=== PATIENT | male | born 1970 | race African-American/Black ===

== ENCOUNTER 2025-09-19 09:39 | Outpatient (AMB) | payer OTHER, SELFPAY ==
--- NOTE | 2025-09-19 09:42 | MHC.OFFVIS ---
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 He was diagnosed with large right hemispheric subdural hemorrhage and had craniotomy for hematoma removal. A year after in [address] in [facility] revealed no significant abnormality of brain other than signs of previous craniotomy. He was complaining of being unsteady. Otherwise there was no evidence of seizure-like episode. He was not having any headaches. No recent falls. [facility] Medical History (Updated 09/19/25 @ 10:06 by Paul Call MD) Normal esophagogastroduodenoscopy (EGD) DVT (deep venous thrombosis) Hyperlipemia Type 2 diabetes mellitus with morbid obesity DM (diabetes mellitus), type 2 with peripheral vascular complications RADHA (obstructive sleep apnea) Obesity, morbid PLMD (periodic limb movement disorder) Accessory toe Essential hypertension Nuclear sclerosis of both eyes Venous insufficiency Venous stasis Peripheral edema Recurrent acute deep vein thrombosis (DVT) of right lower extremity Acute deep vein thrombosis (DVT) of femoral vein of right lower extremity Type 2 diabetes mellitus with cataract Lymphedema Subdural hematoma Abdominal hematoma Moderate episode of recurrent major depressive disorder Paroxysmal atrial fibrillation Surgical History (Updated 09/15/25 @ 08:39 by BETHANY Carrion) H/O craniotomy History of radial keratotomy H/O colonoscopy Family History (Updated 09/15/25 @ 08:43 by BETHANY Carrion) Paternal Grandmother Diabetes mellitus Paternal Grandfather Diabetes mellitus Father HTN (hypertension) Paternal Aunt Blindness Diabetes mellitus Mother Glaucoma Social History (Updated 09/15/25 @ 08:40 by BETHANY Carrion) Alcohol intake: never Patient Tobacco Use Status: Former Tobacco user e-Cigarette/Vaping Use: Former Use Review of Systems Narrative Constitutional:?No fever, chills, fatigue, weight loss, or night sweats. HEENT:? Headaches and sinus problems. Cardiovascular:?No chest pain, palpitations, orthopnea, PND, or leg swelling. Respiratory:?No cough, shortness of breath, wheezing, or hemoptysis. Gastrointestinal:?No nausea, vomiting, abdominal pain, diarrhea, or constipation. Genitourinary:? Incontinent. Musculoskeletal:? Joint pains and difficulty walking. Neurological:? No seizures or falls. Psychiatric:? Anxious. Endocrine:?No heat/cold intolerance, polydipsia, polyuria, or hair/skin changes. Hematologic/Lymphatic:?No easy bruising, bleeding, or lymphadenopathy. Integumentary (Skin):?No rash, lesions, itching, or color changes. Allergic/Immunologic:?No seasonal allergies, hives, or recurrent infections. Assessment & Plan Assessment & Plan (1) Subdural hematoma: Comment: CT brain WO at [facility] in 2021: WNL, s/p craniotomy CT brain WO at [facility] in 2020: Mod to large R SDH, s/p craniotomy Code(s): S06.5XAA - Traumatic subdural hemorrhage with loss of consciousness status unknown, initial encounter Category: Medical (2) Diabetic neuropathy: Code(s): E11.40 - Type 2 diabetes mellitus with diabetic neuropathy, unspecified Category: Medical Qualifiers: Diabetes mellitus type: type 2 Diabetes mellitus complication detail: diabetic polyneuropathy Qualified Code(s): E11.42 - Type 2 diabetes mellitus with diabetic polyneuropathy Plan Impression: 1. History of large right sided subdural hemorrhage that happened when he was taking Eliquis for DVT, lost his balance and fell. He was treated with craniotomy for hematoma evacuation. His head CT a year later did not reveal any significant abnormality. 2. Multifactorial gait disorder from obesity and diabetic neuropathy. Recommendations: 1. Reassurance and education about his conditions 2. EMG nerve conduction study of 1 like to classify in great neuropathy 3. Continue to use a cane and use caution to avoid falls. Common sense measures to avoid accidents. 4. Better control of diabetes and weight reduction 5. Staying physically in mentally active Orders: Orders NE nerve conduction velocity Today E11.42 - Type 2 diabetes mellitus with diabetic polyneuropathy NE electromyogram (EMG) Today E11.42 - Type 2 diabetes mellitus with diabetic polyneuropathy Coding Level of Care Code New Pt Level 4 (67539) Diagnoses Subdural hematoma S06.5XAA Diabetic polyneuropathy associated with type 2 diabetes mellitus E11.42 Diabetes mellitus type: type 2 Diabetes mellitus complication detail: diabetic polyneuropathy
== END 2025-09-19 10:08 | disposition home or self-care (01) ==
LOC: HO.HSM 09:39
PROVIDERS: PCP Internal Medicine; Visit Provider Psychiatry & Neurology Neurology
DX: S06.5XAA Traumatic subdural hemorrhage with loss of consciousness status unknown, initial encounter (principal); E11.42 Type 2 diabetes mellitus with diabetic polyneuropathy
CPT/HCPCS: 99204

== ENCOUNTER → 2025-09-19 09:39 | Outpatient (BNVA) | payer OTHER, SELFPAY | PROVIDERS: PCP Internal Medicine; Visit Provider Psychiatry & Neurology Neurology | DX: S06.5XAA Traumatic subdural hemorrhage with loss of consciousness status unknown, initial encounter (principal); W01.0XXA Fall on same level from slipping, tripping and stumbling without subsequent striking against object, initial encounter; Y93.89 Activity, other specified; Y92.009 Unspecified place in unspecified non-institutional (private) residence as the place of occurrence of the external cause; Y99.9 Unspecified external cause status; E11.42 Type 2 diabetes mellitus with diabetic polyneuropathy | CPT/HCPCS: 99202 ==

== ENCOUNTER 2025-10-24 13:45 | Outpatient (REF) | payer OTHER, SELFPAY ==
--- NOTE | 2025-10-24 14:09 | EMG_ITS ---
Chief complaint: E11.42 Type 2 diabetes mellitus with diabetic polyneuropathy Referred by:?Dr Call Procedure done: Right lower extremity NCS/EMG Right tibial and peroneal motor studies were performed with F responses and tibial H-reflex. Right superficial peroneal and sural sensory studies were performed. Needle examination was performed. Findings: Right tibial amplitudes were markedly diminished while peroneal amplitude was mildly diminished. Tibial conduction velocity was in 30s while peroneal were with a normal range. Were absent. Tibial F response was slightly delayed and H-reflex was absent. 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
--- NOTE | 2025-10-24 15:12 | EMG_ITS ---
Chief complaint: Diabetic polyneuropathy Referred by:?Dr Call Procedure done: Right lower extremity NCS/EMG [place]in 04610 1 extremity MTDD
--- OUTSIDE RECORDS SUMMARY | 2025-10-24 18:36 | XMS_ITS | Clinical Summary ---
Author Organization [facility] Address [address] [place] [address] Care Team Providers Care Health And Safety Advisor Name Role Phone Kaycee Freed MD Primary Care Provider Unavailable Allergies No known active allergies Medications Medication Sig Dispensed Refills Start Date End Date Status atorvastatin (LIPITOR) tablet 40 mg Take 40 mg by mouth daily. 0 Active insulin glargine (LANTUS) injection 100 units/mL Inject under the skin every night at bedtime. 0 Active ammonium lactate (LAC-HYDRIN) 12 % lotion Apply topically as needed for dry skin. 0 Active metoprolol tartrate (LOPRESSOR) 50 MG tablet Take by mouth 2 (two) times a day. 0 Active docusate sodium (COLACE) 100 MG capsule Take 100 mg by mouth 2 (two) times a day. 200 mg 0 Active famotidine (PEPCID) 20 MG tablet Take 20 mg by mouth 2 (two) times a day. 0 Active insulin lispro (HumaLOG) injection 100 units/mL Inject under the skin 3 (three) times a day before meals. 0 Active levETIRAcetam (KEPPRA) 500 MG tablet Take 500 mg by mouth 2 (two) times a day. 0 Active modafinil (PROVIGIL) 100 MG tablet Take 100 mg by mouth daily. 0 Active nicotine (NICODERM CQ) 14 MG/24HR Place 1 patch onto the skin daily. 0 Active polyethylene glycol (MIRALAX) 17 g packet Take 17 g by mouth daily. 0 Active senna (SENOKOT) 8.6 MG tablet Take 1 tablet by mouth daily. 0 Active vitamin B complex w/ vitamin C (TOTAL B/C) TABS tablet Take 1 tablet by mouth daily. 0 Active lisinopril (PRINIVIL,ZESTRIL) tablet 2.5 mg Take 2.5 mg by mouth daily. 0 Active Active Problems Problem Noted Date Diagnosed Date Acute pulmonary embolism without acute cor pulmo nale 12/14/2020 Acute deep vein thrombosis ( DVT) of femoral vein of right lower extremity 12/14/2020 Social History Tobacco Use Types Packs/Day Years Used Date Smoking Tobacco: Every Day Smokeless Tobacco: Never Alcohol Use Standard Drinks/Week Comments No 0 (1 standard drink = 0.6 oz pur e alcohol) Sex and Gender Information Value Date Recorded Sex Assigned at Not on file Gender Identity Not on file Sexual Orientation Not on file Job Start Date Occupation Industry Not on file Not on file Not on file Last Filed Vital Signs Vital Sign Reading Time Taken Comments Blood Pressure 135/70 03/11/2022 11:55 AM EDT Pulse 63 03/11/2022 11:55 AM EDT Temperature 36.6 C (97.8 F) 03/11/2022 11:55 AM EDT Respiratory Rate - - Oxygen Saturation 96% 03/11/2022 11: 55 AM EDT Inhaled Oxygen Concentration - - Weight 167.7 kg (369 lb 12.8 oz) 2021 11:55 AM EDT Height 182.9 cm (6') 03/11/2022 11:55 AM EDT Body Mass Index 50.15 03/11/2022 11:55 AM EDT Plan of Treatment Health Maintenance Due Date Last Done Comments Hepatitis B Vaccines (1 of 3 - 3-dose series) 1968 Hepatitis C Screening 1968 Depression Screening 1980 Preventative Health Evaluation 02/23/1986 Tobacco Cessation Counseling 02/23/1986 Colon Cancer Screening (Colonoscopy) 02/23/2013 Pneumococcal Vaccine (2 of 2 - PCV) 12/29/2014 12/29/2013 Shingrix-Zoster Vaccine (1 of 2) 02/23/2018 DTap / Tdap / Td (2 - Td or Tdap) 07/03/2022 07/03/2012 COVID-19 Vaccine ( - season) 2025 01/17/2022, 01/26/2021, 01/09/2021 Influenza Vaccine (#1) 2025 , 11/02/2020, 10/18/2019, Additional history exists RSV Ped < 20 months Aged Out No longe r eligible based on patient's age to complete this topic Care Teams Health And Safety Advisor Relationship Specialty Start Date End Date Kaycee Freed MD PCP - General Family Medicine 03/11/22
--- OUTSIDE RECORDS SUMMARY | 2025-10-24 18:36 | XMS_ITS ---
Author Name [facility] Organization Unknown Care Team Organization Name Specialty Phone Email Start Date End Da te [facility] Kaycee Freed Primary Care 02/05/20232023 [facility] Jennyfer Felipe Primary Care 10/08/2022 07/19/2024
--- OUTSIDE RECORDS SUMMARY | 2025-10-24 18:36 | XMS_ITS | Data Portability ---
Author Organization [facility] [employer] [facility] Main Office Address [address], [address] [place] [address] Care Team Providers Care Aba Therapist Name Role Phone [facility] OTHER LUISITO EUBANKS Primary Care Provider [phone] Assessment No assessment recorded. Plan of Treatment Reminders Order Date Submit Date Provider Last Modified By Organization Details Last Modified Time Details Appointments None record ed. Lab None record ed. Referral None record ed. Procedures None record ed. Surgeries None record ed. Imaging None record ed. Medication Orders None record ed. Patient TargetsNo targets recorded. Patient Instructions Encounter Date Encounter Id Patient Instructions Last Modified By Organization Details Last Modified Time 09/12/2021 [id number] Dispo -- home wi th IV abx complete, approximately 14 days [email or web address] Not available 09/13/2021 21:18:35 09/27/2021 [id number] F/U Appointments : PCP: Dr. Luisito Eubanks 09/28/2021 @ 1100 Total time spent on discharge: 45 minutes Scripts not needed since pt seeing PCP tomorrow [email or web address] Not available 09/27/2021 12:21:23 Reason for Referral None Reported. Problems Name Problem SNOMED Code Status Onset Date Resolution Date Notes Provider Name and Address Organization Details Recorded Time Cellulitis of lower limb 507518530 Active 2020 BECKA BOO PA-C [address], [place], [address], [facility] [employer] 21:00:20 Deep venous thrombosis of lower extremity 642590279 Active 2020 BECKA BOO PA-C [address], [address], [place], [address], [facility] [employer] 20:54:24 Type 2 diabetes mellitus with peripheral angiopathy 803426928 Active 2020 BECKASA RAJEEV PA-C [address], [address], [place], [address], [facility] 20:54:47 Essential hypertension 96438502 Active 2020 BECKA SHANTELLE BOO [address], [address], [place], [address], [facility] 20:54:54 Dyslipidemia 300254492 Active 2020 BECKA SHANTELLE BOO [address], [address], [place], [address], [facility] 20:55:01 Lymphedema 128777714 Active 2020 BECKASA RAJEEV PA-C [address], [address], [place], [address], [facility] 20:55:16 Pulmonary embolism 88475440 Active 2020 BECKA BOO PA-C [address], [place], [address], [facility] 20:55:41 Nicotine dependence 37674442 Active 2020 Marcie Morrison MD [address], [place], [address], [facility] 01:13:35 Allergic rhinitis 36331932 Active 2020 Marcie Morrison MD [address], [place], [address], [facility] 01:16:42 Problem Notes None recorded. Medical Equipment None Reported. Allergies No known drug allergies Medications Not known to be on any medication Vitals Date Recorded Body temperature Heart rate Respiratory rate Oxygen saturation Systolic And Diastolic Provider Name and Address Organization Details Last Updated DateTime 98 [degF] 86 /min 21 /min 95 % 141/82 mm[Hg] BECKA SHANTELLE BOO [address], [address], [place], [address], [facility] 13:34:09 Date Recorded Body height Body mass index (BMI) Body weight Heart rate Respiratory rate Body temperature Oxygen saturation Systolic And Diastolic Provider Name and Address Organization Details Last Updated DateTime 182.88 cm 47.5 kg/m2 450356. 97 g 82 /min 18 /min 96.8 [degF] 94 % 115/64 mm[Hg] Marcie Morrison MD [address] [facility], [address], [place], [address], [facility] 15:11:05 Date Recorded Body height Body temperature Heart rate Body mass index (BMI) Body weight Respiratory rate Oxygen saturation Systolic And Diastolic Provider Name and Address Organization Details Last Updated DateTime 182.88 cm 96.8 [degF] 82 /min 48.1 kg/m2 681347. 21 g 18 /min 94 % 115/64 mm[Hg] BECKA BOO PA-C [address] [facility], [facility] [address], [place], [address], [facility] 11:12:10 Social History Question Answer Notes LastModified by Organizat ion Details LastModified Time Tobacco Smoking Status Current Every Day Smoker BECKA BOO PA-C [address] [facility], [facility] [address], [place], [address], [facility] 09/12/2021 13:45:31 Do You Have An Advance Directive? Yes Full Code [email or web address] Information not available 09/12/2021 What Is Your Code Status? Full Code [email or web address] Information not available 09/12/2021 Legal Guardian? No Informati on not available 09/12/2021 Do You Have A Medical Power Of Director Of Religious Life? Yes Valid Copy On Chart, Not Invoked [email or web address] Information not available 09/12/2021 How Much Tobacco Do You Smoke? 1 PPD 1/2-1 Ppd Information not available 09/12/2021 Has Tobacco Cessation Counseling Been Provided? Yes Information not available 09/12/2021 On What Date Was Tobacco Cessation Counseling Provided? 09/12/2021 [email or web address] Information not available 09/12/2021 How Many Years Have You Smoked Tobacco? 20 [email or web address] Information not available 09/12/2021 Sex: Unknown Functional Status Question Answer Note LastModified by Organization D etails LastModified Time Do you or have you ever used any other forms of tobacco or nicotine? No [email or web address] Information not available 09/12/2021 Mental Status None recorded. Family History Relationship Description Onset Age of this Age Resolved Age Notes LastModified by Organization Details LastModified Time Mother Diabetes mellitus [email or web address] Not available 2020 21:19:49 Medical History No medical history recorded. Past Encounters Encounter ID Performer Location Encounter Start Date Encounter Closed Date Diagnosis/Indication Diagnosis SNOMED-CT Code Diagnosis ICD10 Code Diagnosis IMO Codes Diagnosis Note [id number] BECKA BOO PA-C [facility] on [address] [place] [address] 09/12/2021 13:32:28 09/14/2021 14:07:29 Cellulitis of lower limb 353941269 L03.119 Continue CTX 2 g IV q 24 h x 14 daysAdd probioticH as f/u wound clinic at [facility] 09/17/21 at 1300was [facility] 5-10 mg po q 4 h prn mod-severe pain-scrip t oxycodone IR 5 mg #90 no refills given to nurseAPAP 1 g po tid x 10 days then tid prn pain/fever Deep venou s thrombosis of lower extremity 494143768 I82.409 Continue Eliquis 5 mg po bid Dyslipidemia 145432267 E 78.5 Continue Lipitor 40 mg po qhs Essential hypertension 52428801 I10 Continue:- Lisinopril 40 mg po daily-Lasi x 40 mg po dailyMonit or sugars and adjust meds prn Lymphedema 020858197 I89 .0 Referred to lymphedema clinic at [facility] -- clarify if appointmen t already in place Pulmonary embolism 50530 003 I26.99 Continue Eliquis 5 mg po bid Type 2 michelle betes mellitus with peripheral angiopathy 980344180 E11.51 Continue:- Lantus 40 ux SQ qhs-Metfor min 1 g po bid-Trulic ity 1.5 mg SQ qhs-Correc tional insulinOn TATO-I for renal protection Monitor sugars and adjust meds prn Nicotine dependence 5629 4008 F17.200 Counseled 4 minutes on the importance of cessationn ot interested in quitting [id number] Marcie Morrison MD [facility] on [address] [place] [address] 09/17/2021 15:09:45 09/24/2021 15:46:11 Cellulitis of lower limb 639590638 L03.115 Completing course of ceftriaxon e 2 gms IV q 24 hrs until 09/26Conti nue APAP 1000 mg TID x 10 day-then TID prn, oxycodone 5-10 mg q 4 hrs prn.Contin ue wound care as ordered.King s f/u wound clinic at [facility] 09/17/21 at 1300And needs appt at lymphedema clinic at [facility] Deep ven s thrombosis of lower extremity 353794036 Z86.718 Continue Eliquis 5 mg BID.Monito r for sxs. Dyslipidemia 556813160 E 78.49 Continue atorvastat in 40 mg qhsMonitor labs as outpt. Essential hypertension 24317298 I10 In good control on lisinopril 40 mg qd and Lasix 40 mg qd.Monitor BP and labs. Lymphedema 020300071 I89 .8 As above Pulmonary embolism 96046 003 I26.99 Continue Eliquis 5 mg po bidMonitor sxs. Type 2 michelle betes mellitus with peripheral angiopathy 848127832 E11.51 Sugars have trina in good control since here.Narayan nue Lantus 40 U qd, metformin 1000 mg BID, Trulicity 1.5 mg SQ qhs and SSI.Contin ue ACEI for renal protection .Monitor sugars and adjust meds prn Nicotine dependence 5629 4008 F17.210 Not interested in quitting.C ontinue to encourage cessation. Allergic rhinitis 546076 04 J30.89 Continue cetirizine 10 mg qd.Monitor sxs. [id number] BEKCA BOO PA-C [facility] on [address] [place] [address] 09/27/2021 10:58:32 10/01/2021 14:12:47 Cellulitis of lower limb 138922656 L03.115 Completed abxf/u [facility] wound clinic Deep venou s thrombosis of lower extremity 235967303 Z86.718 Continue Eliquis 5 mg po bid Type 2 michelle betes mellitus with peripheral angiopathy 758796460 E11.51 Continue:- Lantus 40 ux SQ qhs-Metfor min 1 g po bid-Trulic ity 1.5 mg SQ q Friday On TATO-I for renal protection Health Concerns Section Related Observation LastModified by Organization Detai ls LastModified Time None Recorded Concern Status LastModified by Organization Details LastModified Time None Recorded Advance Directives Directive Y: full code Payers Insurance Date Sequence Insurance Name Policy Number Policy Aly Covered Member ID Aly Member ID Guarantor Name 05/05/2024 1 [place] [facility] Albin Colon [id number] Albin Colon Notes Date Note Type Note Provider Name and Address Organization Details Recorded Time 09/12/2021 text/html Pt seen today for initial intake. 51-y/o M admitted from [facility] where he was hospitalized 08/28-09/11/21 for R leg cellulitis and chronic non-healing wound R lateral lower leg with severe sepsis. Tx Vanc/Zosyn. Had surgical consult with Dr. Ralph Duarte -- surgical intervention not required. Seen by ID, Dr. Lisa Lambert. Vanc/Zosyn d/c/d 09/04/21 and Clinda 900 mg q 8 and CTX 2 g IV q 24 started instead. Multiple blisters developed on RLE and ruptured - these were attributed to bullous Erisypelas, prompting the change in Abx to target Strep. PICC placed LUE. Here for subacute rehab/IV abx with plan to return home. PMHx: RLE cellulitis 08/2021; Hx RLE DVT 10/2020, on Eliquis; DM2 with PVD, poor med compliance; HTN; Dyslipidemia; RADHA, non-compliant with CPAP; Lymphedema; Chronic venous stasis; Periodic limb movement d/o; Tobacco use d/o; Morbid obesity; Hx pulmonary embolism; Allergic rhinitis; ?Paroxysmal A-fib (noted on EKG that sinus rhythm had replaced A-fib but no other documentation suggesting this dx); Hx appendectomy; hx colon polypectomy; Anemia; RBBB; Hx hypokalemia Healthcare Maintenance: subacute rehab pt PPI use: not on a PPI Meds:Lisinopril 40 mg po daily (increased from 20 mg)Oxycodone IR 5-10 mg po q 4 h prn mod-severe pain (new)APAP 1 g po q 8 h (new)CTX 2 g IV daily x 14 days (new)Triple abx ointment bid to ruptured blisters x 14 days (new)Nicoderm 21 mg (new)Eliquis 5 mg po bidLipitor 40 mg po qhsZyrtec 10 mg po dailyTrulicity 1.5 mg SQ weeklyLasix 40 mg po dailyCorrectional insulin 02/02//09/11 starting at 150Lantus 40 ux SQ qhsMetformin 1 g po bidMVI 1 po daily Diet: HCC, regular, thin liquids Mobility: independent at baselineContinence: continent of bowel and bladderFeeding: independent ROS: Leg pain persists - oxycodone moderately helpful. No f/c/s. No CP/SOB/BARROS/PND/orthopne a. No palpitations. BECKA BOO PA-C [address] [place] [address], [address], [place], [address], [facility] [employer] 09/13/2021 21:22:00 09/17/2021 text/html This is a 51 yo man who is here for rehab after an acute hospitalization for right leg cellulitis with non-healing wounds, likely erysipelas. He presented to the [facility] ED on 08/28 with c/o increased RLE swelling and pain. He reported 3 weeks of a RLE wound that was not healing. He met sepsis criteria with HR of 110, WBC-16.7 and lactic acid on 3.2. He was admitted and started on vanco and zosyn. CT of RLE was done which showed no gas accumulation. But did show diffuse soft tissue edema c/w cellulitis. Doppler showed no DVT. He initially improved, then on 09/02 leg was redder and more swollen. ID recommended change to clinda and ceftriaxone. Then developed multiple blisters on leg and erysipelas was considered and clinda d/c'd after 3 days. His WBC and CRP were downtrending. Surgery was involved throughout stay, but no surgical intervention was needed. He was transferred here on 09/12 for rehab and another 14 days of IV ceftriaxone.Still hurts, but pain is getting better each day. Walking ok. Feels like PT is helping.His PMH includes HTN, AODM with PVD, parox. Afib, lymphedema, s/p RLE cellulitis, hx of RLE DVT 10/2020, hx of PE, HLD, RADHA-not being txed, RLS, allergic rhinitis, morbid obesity, cigarette smoker, and anemia. Marcie Morrison MD [address] [facility], [address], [place], [address], [facility] [employer] 09/23/2021 01:18:11 09/27/2021 text/html ROS as noted in the HPI Pt seen today for discharge. Admit Date: 09/11/21 Discharge/Service Date:09/27/21 Principle Discharge Diagnosis: R leg cellulitis/bullous Erisypelas and chronic non-healing wound R lateral lower leg with severe sepsis Secondary Discharge Diagnoses: Hx RLE DVT 10/2020, on Eliquis; DM2 with PVD, poor med compliance; HTN; Dyslipidemia; RADHA, non-compliant with CPAP; Lymphedema; Chronic venous stasis; Periodic limb movement d/o; Tobacco use d/o; Morbid obesity; Hx pulmonary embolism; Allergic rhinitis; ?Paroxysmal A-fib (noted on EKG that sinus rhythm had replaced A-fib but no other documentation suggesting this dx); Hx appendectomy; hx colon polypectomy; Anemia; RBBB; Hx hypokalemia Hospital Patient Received From: [facility] Attending MD: Dr. Farhat Alcala/Becka Boo PA-C Medications Started at SNF: none Medications Discontinued at SNF & Why: CTX (completed tx); Nicoderm (pt opted to smoke); Triple antibiotic ointment (completed); prn oxycodone (rare use) Dose Changes: APAP changed to prn Med changes prior to admit: Lisinopril increasedOxycodone addedscheduled APAP addedCTX addedTriple antibiotic ointment addedNicoderm added Discharge Medication List: Lipitor 40 mg po qhsMVI q amZyrtec 10 mg po q amTrulicity 1.5 mg SQ q FridayLasix 40 mg po q amLantus 40 ux SQ qhsLisinopril 40 mg po q amEliquis 5 mg po bidMetformin 1 g po bid PCP Head s Up: Sugars have been well-controlled here. As such, fingerstick blood sugar monitoring has been discontinued upon discharge in order to streamline his discharge to the correction. Post-Acute Summary: Admitted for subacute rehab and IV abx. Participated and progressed in PT/OT (see their discharge summaries for details.) Sugars monitored and well-controlled. Vitals stable. LLE cellulitis improved and he completed abx. Discharging home today. Home Health Certification: Dx as above; Seen this am by [facility]-registered Becka Boo PA-C NPI# [id number]; Last MD visit 09/17/21; care home for medication management and reconciliation and teaching, wound monitoring; PT: home exercise program for gait training and increasing muscle strength and needs home environment assessment to determine need for assistive devices; OT for increased independence with ADLs; Home-bound due to needs assistance to navigate uneven curbs and sidewalks with single point cane. Pt seen in erpz-no-asgu examination today for single-point cane and bariatric shower tub bench with back. Pt requires the single-point cane for ambulation due to chronic RLE wound (E11.621,) lymphedema (I89.0,) and DM2 with PVD (E11.51.) He cannot ambulate without the use of an assistive device due to altered gait from the aforementioned. He requires a tub bench with back (bariatric) in order to mitigate fall risk when showering and because he has difficulty optimizing necessary hygiene due to morbid obesity (E66.01.) Without a tub bench with back, pt would be at increased risk of falls since he cannot balance on 1 leg and would be at increased risk of recurrent infection from inadequate hygiene. Pt has been using a facility-issued single-point cane and bariatric shower tub bench with back with success. Having these items will allow him to discharge to a less-restrictive setting. Qualifying dx as above. Height: 6', Weight: 354.7 lbs; RED=99; Prescriber info as above in the Home Health Certification Section. Consultants Involved: none Tests/Labs Needing to be Ordered or Followed by PCP: per PCP discretion; however, basic labs were ordered here but not performed so you may want to order those Services Ordered at Discharge: referred to [facility] Diet: carb controlled, regular, thin liquids Activity: as tolerated with single point cane Pt has no complaints. BECKA BOO PA-C [address] [facility], [address], [place], [address], [facility] [employer] 09/27/2021 12:28:40
== END 2025-10-24 13:46 | disposition home or self-care (01) ==
LOC: HO.NEURO 13:45
PROVIDERS: Visit Provider Psychiatry & Neurology Neurology
DX: E11.42 Type 2 diabetes mellitus with diabetic polyneuropathy (principal)
CPT/HCPCS: 95886; 95909

== ENCOUNTER → 2025-10-24 14:09 | Outpatient (BNV) | payer OTHER, SELFPAY | PROVIDERS: Visit Provider Psychiatry & Neurology Neurology | DX: M54.17 Radiculopathy, lumbosacral region (principal); E11.42 Type 2 diabetes mellitus with diabetic polyneuropathy | CPT/HCPCS: 95886; 95909 ==

== ENCOUNTER 2025-11-16 08:40 | Outpatient (AMB) | payer OTHER, SELFPAY ==
--- NOTE | 2025-11-16 08:46 | A.OFFVIS_ITS ---
Intake Visit Reasons: results Allergies No Known Allergies Allergy (Verified 09/15/25 08:55) HPI Comments Details: 55 years old moderately obese man presenting for follow-up of a previous brain hemorrhage and craniectomy. In 2020, he was diagnosed with a lateral right hemisphere subdural hemorrhage while on anticoagulation therapy (Apixaban) for a deep vein thrombosis in his right leg. He speculates that a fall may have precipitated the bleeding event, but specific details are unclear. Initially, he noted improvement as the hemorrhage began to resolve spontaneously. However, the patient eventually underwent a craniectomy for hematoma removal. In 2021, a follow-up CT scan indicated no significant abnormalities besides the changes from the craniectomy. Currently, he reports no ongoing symptoms related to the hemorrhage. He had been placed on seizure medication due to a risk of epilepsy from the blood irritation but discontinued it without further issues. His additional medical history includes diabetes mellitus and hypertension, and he acknowledges experiencing neuropathy that may affect his balance. [facility] Medical History (Updated 11/16/25 @ 08:53 by Paul Call MD) Normal esophagogastroduodenoscopy (EGD) DVT (deep venous thrombosis) Hyperlipemia Type 2 diabetes mellitus with morbid obesity DM (diabetes mellitus), type 2 with peripheral vascular complications RADHA (obstructive sleep apnea) Obesity, morbid PLMD (periodic limb movement disorder) Accessory toe Essential hypertension Nuclear sclerosis of both eyes Venous insufficiency Venous stasis Peripheral edema Recurrent acute deep vein thrombosis (DVT) of right lower extremity Acute deep vein thrombosis (DVT) of femoral vein of right lower extremity Type 2 diabetes mellitus with cataract Lymphedema Subdural hematoma Abdominal hematoma Moderate episode of recurrent major depressive disorder Paroxysmal atrial fibrillation Surgical History (Updated 09/15/25 @ 08:39 by BETHANY Carrion) H/O craniotomy History of radial keratotomy H/O colonoscopy Family History (Updated 09/15/25 @ 08:43 by BETHANY Carrion) Paternal Grandmother Diabetes mellitus Paternal Grandfather Diabetes mellitus Father HTN (hypertension) Paternal Aunt Blindness Diabetes mellitus Mother Glaucoma Social History (Updated 09/15/25 @ 08:40 by BETHANY Carrion) Alcohol intake: never Patient Tobacco Use Status: Former Tobacco user e-Cigarette/Vaping Use: Former Use Review of Systems Narrative - Neurological: Denies recent headaches or neurological symptoms. - Hematological: Reports history of DVT in right leg, managed with anticoagulant therapy. - Endocrine: Reports diagnosis of diabetes mellitus. - Cardiovascular: Reports history of hypertension. Physical Exam Neuro Other: Mental Status: Alert and oriented to person, place, and time. Normal attention. Normal spontaneous speech, fluency, and comprehension. Cranial Nerves: CN II: Visual lopez full to confrontation, visual acuity intact. CN III, IV, : Pupils equal, round, reactive to light and accommodation. Extraocular movements are normal. CN V: Facial sensation is normal. CN VII: Facial movements symmetrical. CN VIII: Hearing intact to bedside conversation is normal. CN IX, X: Palate elevates symmetrically. CN XI: Shoulder shrug and head turn symmetrical. CN XII: Tongue midline without atrophy or fasciculations. Gait: Cautious with a cane. Extrapyramidal: Full facial expressions and blinking. No rigidity. Movements are appropriate with no tremor or abnormality. Speech: Normal; no dysarthria or tremor. Assessment & Plan Assessment & Plan (1) Diabetic neuropathy: Comment: EMG/NCS R leg at [facility] in Oct 2025: Mild sensory more motor neuropathy, chronic R lumbar radiculopathy Code(s): E11.40 - Type 2 diabetes mellitus with diabetic neuropathy, unspecified Category: Medical Qualifiers: Diabetes mellitus type: type 2 Diabetes mellitus complication detail: diabetic polyneuropathy Qualified Code(s): E11.42 - Type 2 diabetes mellitus with diabetic polyneuropathy (2) Subdural hematoma: Comment: CT brain WO at [facility] in 2021: WNL, s/p craniotomy CT brain WO at [facility] in 2020: Mod to large R SDH, s/p craniotomy Code(s): S06.5XAA - Traumatic subdural hemorrhage with loss of consciousness status unknown, initial encounter Category: Medical Plan Impression: 1. History of large right sided subdural hemorrhage that happened when he was taking Eliquis for DVT, lost his balance and fell. He was treated with craniotomy for hematoma evacuation. His head CT a year later did not reveal any significant abnormality. 2. Multifactorial gait disorder from obesity and diabetic neuropathy. Recommendations: 1. Reassurance and education about his conditions 2. Continue to use a cane and use caution to avoid falls. Common sense measures to avoid accidents. 3. Staying physically in mentally active Coding Level of Care Code Est Pt Level 3 (23162) Diagnoses Diabetic polyneuropathy associated with type 2 diabetes mellitus E11.42 Diabetes mellitus type: type 2 Diabetes mellitus complication detail: diabetic polyneuropathy Subdural hematoma S06.5XAA
== END 2025-11-16 08:55 | disposition home or self-care (01) ==
LOC: HO.HSM 08:41
PROVIDERS: Visit Provider Psychiatry & Neurology Neurology
DX: E11.42 Type 2 diabetes mellitus with diabetic polyneuropathy (principal); S06.5XAA Traumatic subdural hemorrhage with loss of consciousness status unknown, initial encounter
CPT/HCPCS: 99213

== ENCOUNTER → 2025-11-16 08:40 | Outpatient (BNVA) | payer OTHER, SELFPAY | PROVIDERS: Visit Provider Psychiatry & Neurology Neurology | DX: E11.42 Type 2 diabetes mellitus with diabetic polyneuropathy (principal); R26.9 Unspecified abnormalities of gait and mobility; E66.9 Obesity, unspecified; Z86.73 Personal history of transient ischemic attack (TIA), and cerebral infarction without residual deficits; Z79.01 Long term (current) use of anticoagulants | CPT/HCPCS: 99212 ==